=== PATIENT | female | born 1975 | race Caucasian/White ===

== ENCOUNTER 2022-11-22 10:17 | Day surgery (SDC) | payer MEDICAID, SELFPAY ==
[2022-11-15 14:13] VITALS: BMI 34.9
[2022-11-22 11:29] VITALS: BP 135/72; PULSE 71; RESP 20; TEMP 36.4; O2SAT 98
[2022-11-22 11:36] LABS: Urine Pregnancy, HCG Qual. Negative (Negative)
[2022-11-22 12:23] VITALS: O2SAT 97
--- NOTE | 2022-11-22 12:25 | P.PN_ITS ---
[facility] Disclaimer: The information contained in this section may have been updated after the patient was seen, as this information can be updated by other users. Medical History No significant past medical history Surgical History Hx of umbilical hernia repair Family History Other Diabetes Family history of hyperlipidemia Family history of hypothyroidism Hyperlipidemia Thyroid disorder Social History Smoking Status: Never smoker alcohol intake: never substance use type: denies use current occupational status: other Travel in the last 8 weeks: None household members: spouse and family housing: house marital status: education level: high school service: No care home: No caffeine: No special genevieve needs: No agree to transfusion: No do you feel safe at home: Yes victim of physical abuse: No victim of emotional abuse: No victim of sexual abuse: No would you like helpful sources: No [facility] Anesthesia Checklist Patient Identification Patient Identification: Arm Band and Verbal (Name & ) Structural Data Admitted From: Home Planned Operative Procedure/s: Colonoscopy Consent for Planned Operative Procedure(s) Verified: Yes NPO Status Verified Time NPO: 00:00 Chart Verification Results Verified: HCG Airway Assessment C-Spine Mobility Assessed: Yes TMJ Mobility Assessed: Yes Dentition: Good Dentition Neurological Assessment Level of Consciousness: Awake Hx Seizures: No Numbness or tingling in extremities: No Anesthesia Plan Anesthesia Risk discussed: Yes Anesthesia Plan: Verified ASA Class: II Anesthesia Type: MAC
--- NOTE | 2022-11-22 12:38 | HMH.SCOPE ---
Procedure: Date: 11/22/22 Patient Date of :: 1975 Procedure Performed:: Colonoscopy Indications:: Screening colonoscopy Performing Provider:: Tariq Yuan MD Referring Provider:: Yasmin Jefferson Sedation:: See RN notes Procedure:: After placing the patient in the left lateral decubitus position, the colonoscopy was gently inserted into the rectum and under direct visualization advanced to the cecum which was identified by transillumination in the right lower quadrant, identification of the ileocecal valve, appendiceal orifice, and cecal strap. Color, texture, mucosa, and anatomy of the colon were carefully examined with the scope. Findings:: Anal canal: normal Rectum: Internal hemorrhoids Sigmoid colon: Diverticulosis Descending colon: normal without polyps or inflammatory changes Splenic flexure: normal Transverse colon: normal without polyps or inflammatory changes Hepatic flexure: normal Ascending colon: normal without polyps or inflammatory changes Cecum: normal Terminal ileum: not visualized Recommendations:: Higher fiber diet Repeat colonoscopy in 10 years or sooner if clinically indicated Complications:: None Estimated blood obtained (mL): 0
[2022-11-22 12:39] VITALS: BP 114/69; PULSE 76; RESP 15; TEMP 36.4; O2SAT 94
[2022-11-22 12:49] VITALS: BP 118/74; PULSE 63; RESP 16; O2SAT 95
[2022-11-22 12:59] VITALS: BP 124/72; PULSE 60; RESP 16; O2SAT 95
[2022-11-22 13:25] VITALS: BP 133/78; PULSE 53; RESP 17; O2SAT 99
== END 2022-11-22 13:30 | disposition home or self-care (01) ==
PROVIDERS: PCP Nurse Practitioner Family; Visit Provider Internal Medicine
PROC: 0DJD8ZZ Inspection of Lower Intestinal Tract, Via Natural or Artificial Opening Endoscopic (ICD-10-PCS; CPT 45378; principal; 2022-11-22 11:30)
DX: Z12.11 Encounter for screening for malignant neoplasm of colon (principal); K64.8 Other hemorrhoids; K57.30 Diverticulosis of large intestine without perforation or abscess without bleeding; Z79.899 Other long term (current) drug therapy
CPT/HCPCS: 45378; 81025; J2704

== ENCOUNTER 2022-12-29 17:10 | Emergency (ER) | payer MEDICAID, SELFPAY ==
[2022-12-29 17:12] VITALS: BP 112/71; PULSE 88; RESP 17; TEMP 36.8; O2SAT 97; BMI 19.2
--- NOTE | 2022-12-29 17:28 | HMH.EDGENADL ---
Discharge Plan Disposition Patient Disposition: Home, Self-Care Prescriptions Prescriptions: New cefdinir 300 mg capsule 300 mg PO BID 10 Days Qty: 20 0RF No Action Co [id number] E-Fish Oil 25-150-200 mg-mg-unit capsule 1 cap PO DAILY omega 0-azw-xky-fish oil [Fish Oil] 300-1,000 mg capsule 1 cap PO DAILY cholecalciferol (vitamin D3) 25 mcg (1,000 unit) capsule 25 mcg PO DAILY cinnamon bark [Cinnamon] 500 mg capsule 500 mg PO DAILY vlacdaa-yflq-rubcr-oreg-capryl 100 mg-150 mg- 50 mg-150 mg capsule 1 cap PO DAILY thyroid (pork) [TRACK INSPECTING SUPERVISOR Thyroid] 60 mg tablet 60 mg PO DAILY peg 3350-electrolytes [GaviLyte-G] 236-22.74-6.74 -5.86 gram recon soln 240 ml PO Q10M Rx Instructions: until fecal effluent is clear follow mailed instructions peg 3350-electrolytes [GaviLyte-G] 236-22.74-6.74 -5.86 gram recon soln 240 ml PO Q10M Rx Instructions: until fecal effluent is clear follow mailed instructions Referrals Follow up/Referrals: Yasmin Jefferson APRN [Primary Care Provider] - See instructions Activity Restrictions/Add. Instructions Additional Instructions/Restrictions: Your evaluation today for flank pain dysuria and blood in your urine did not demonstrate any kidney stones within the collecting system that would be causing your symptoms today. You do have some intrarenal kidney stones which are typically asymptomatic. Urine culture has been sent. Your antibiotic has been transitioned from nitrofurantoin to Omnicef. If you are not improving in 48 to 72 hours please have your primary care doctor look up the urine culture and sensitivity results. 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 If you have any high fevers that are not improving on Tylenol and ibuprofen or symptoms that are not improving or other concerns please return to the emergency department otherwise you are stable to follow-up with primary care doctor. Clinical Impressions Clinical Impression: Pyelonephritis Instructions Patient Instructions: DI for Acute Abdominal Pain Discharge ED Provider: [place] [facility] HPI General Chief complaint: Abdominal Pain Stated complaint: possible kidney Time Seen by Provider: 12/29/22 17:28 History of Present Illness HPI narrative: Patient is a 47-year-old female with a history of kidney stones who presents today with symptoms that she claims are similar to her kidney stone. She states she has not had 1 in 6 or 7 years. Over the last several days she has had some dysuria and blood in her urine. She went to her primary care doctor and had a urinalysis which showed an infection, she was started on nitrofurantoin. She had right flank pain at that time. She states that this is simply worsened over the last few days. The pain is located in the right side of her abdomen and flank and she is still having dysuria and hematuria. Related Data Home Medications Medication Instructions Recorded Confirmed cholecalciferol (vitamin D3) 25 25 mcg PO DAILY Supplement 10/26/22 11/22/22 mcg (1,000 unit) capsule cinnamon bark 500 mg capsule 500 mg PO DAILY Supplement 10/26/22 11/22/22 (Cinnamon) omega 1-umr-ias-fish oil 300 1 cap PO DAILY Supplement 10/26/22 11/22/22 mg-1,000 mg capsule (Fish Oil) thyroid (pork) 60 mg tablet (TRACK INSPECTING SUPERVISOR 60 mg PO DAILY thyroid 10/26/22 11/22/22 Thyroid) tumeric 100 mg-marimar 150 mg-olive 1 cap PO DAILY Supplement 10/26/22 11/22/22 50 mg-oreg 150 mg-caprylate capsule ubidecarenone-omega 3-vit E 25 1 cap PO DAILY Supplement 10/26/22 11/22/22 mg-150 (90-60) mg-200 unit capsule (Co U-44-Hcdnhrf E-Fish Oil) peg 3350-electrolytes 236 240 ml PO Q10M prep 11/07/22 11/22/22 gram-22.74 gram-6.74 gram-5.86 gram solution (GaviLyte-G) peg 3350-electrol
--- NOTE | 2022-12-29 17:35 | CT_ITS ---
PROCEDURE INFORMATION: Exam: CT Abdomen And Pelvis Without Contrast Exam date and time: 12/29/2022 6:33 PM Age: 47 years old Clinical indication: Abdominal pain; Flank; Right; Additional info: Right flank pain TECHNIQUE: Imaging protocol: Computed tomography of the abdomen and pelvis without contrast. Radiation optimization: All CT scans at this facility use at least one of these dose optimization techniques: automated exposure control; mA and/or kV adjustment per patient size (includes targeted exams where dose is matched to clinical indication); or iterative reconstruction. REPORTING DATA: Count of CT and Cardiac NM exams in prior 12 months: This patient has received 0 known CTs and 0 known cardiac nuclear medicine studies in the 12 months prior to the current study. COMPARISON: ABDPELW/O CT ABD PELVIS W/O CONTRAST 05/10/2017 12:33 PM FINDINGS: Lungs: The visualized lung bases are clear. Pleural spaces: There are no pleural effusions. Heart: The visualized portions of the heart are unremarkable. There is no evidence of pericardial fluid collections. Liver: There is diffuse decrease in hepatic/liver parenchymal density consistent with fatty infiltration. Evaluation of the liver is limited without contrast but the liver is otherwise within normal limits for this noncontrast study. Gallbladder and bile ducts: Several small calcified gallstones are present. No gallbladder wall thickening or pericholecystic fluid. Pancreas: Noncontrast images of the pancreas are within range of normal. Spleen: There are a few rounded splenic hypodensities that cannot be further characterized on the current examination. The larger hypodensities may be cystic regions. A 2.4 cm hypodensity in the mid inferior spleen demonstrate internal Hounsfield units of 9 suggesting cyst. There is a tiny punctate focus of increased density along the periphery of this hypodensity suggesting small mural calcification. An inferior splenic hypodensity demonstrates Hounsfield units of 11 suggesting cystic process. These are all stable when compared with 2017 study given differences in imaging technique suggesting benign processes. Adrenal glands: The adrenal glands are normal. Kidneys and ureters: There are multiple nonobstructing bilateral renal collecting system calcifications, as before. 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 No hydronephrosis. No hydroureter. No ureteric stone disease. Stomach and bowel: The stomach is normal. The duodenum is unremarkable. Lack of gastrointestinal contrast limits evaluation of bowel. Mild diverticulosis is present in the distal colon. There is no evidence of colitis/diverticulitis. Unopacified loops of small bowel within range of normal. Appendix: A normal appendix is identified. Intraperitoneal space: There is no evidence of free intraperitoneal or pelvic fluid. No free air. Vasculature: The aorta demonstrates mild atherosclerotic calcification. Lymph nodes: There is no evidence of pathologic adenopathy. Urinary bladder: There is minor nonspecific bladder wall thickening. Reproductive: The uterus is normal. The left ovary is normal. The right ovary is normal. Bones/joints: There is no evidence of acute fracture. There are mild degenerative changes of the symphyseal pubic joint. There are mild degenerative changes of the sacroiliac joints. The thoracolumbar spine demonstrates mild degenerative changes at multiple levels. There is slight retrolisthesis of L5 on S1. There is a lucency within the T11 vertebral body which is nonspecific but likely reflects a hemangioma. This is mildly increased since 2017. There is a small stable ov
[2022-12-29 17:46] LABS: Microscopic, Urine URINE MICROSCOPIC (MICROSCOPIC)
[2022-12-29 17:49] LABS: Basophils # 0.1 K/mm3 (0-0.2); Basophils % 0.4 % (0.1-2.0); Eosinophils # 0.2 K/mm3 (0.0-0.4); Eosinophils % 1.6 % (0.1-12.0); Hematocrit 41.8 % (37.0-47.0); Hemoglobin 13.6 g/dL (12.2-16.2); Lymphocytes # 1.8 K/mm3 (0.7-4.5); Mean Corpuscular HGB Conc 32.6 g/dL (31.8-35.4); Mean Corpuscular Hemoglobin 25.8 pg (27.0-31.2); Mean Corpuscular Volume 79.1 fl (81-99); Monocytes # 0.6 K/mm3 (0.1-1.0); Monocytes % 5.3 % (1.7-9.3); Neutrophils # 8.8 K/mm3 (1.8-7.8); Neutrophils % 76.6 % (37.0-80.0); Platelet Count 281 K/mm3 (142-424); Red Blood Count 5.29 M/mm3 (4.20-5.40); Red Cell Distribution Width 15.6 % (11.5-17.5); White Blood Count 11.4 K/mm3 (4.8-10.8)
[2022-12-29 17:50] LABS: Appearance,Urine CLEAR (Clear); Bilirubin,Urine Negative (Negative); Blood, Urine 1+ (Negative); Chloride 97 mmol/L (98-107); Color,Urine YELLOW (Yellow); Glucose,Urine (UA) Negative (Negative); Ketones,Urine Negative (Negative); Leukocyte Esterase,Urine 1+ (Negative); Nitrate,Urine Negative (Negative); PH,Urine 5.5 (5.0-8.5); Protein,Urine Negative (Negative); Sodium 138 mmol/L (136-145); Specific Gravity, Urine <= 1.005 (1.005-1.030); Urobilinogen,Urine 0.2 EU/dl (0.2)
[2022-12-29 17:53] LABS: Alanine Aminotransferase 26 U/L (12-78); Albumin Level 4.6 g/dl (3.5-5.0); Albumin/Globulin Ratio 1.5 (1.1-1.8); Alkaline Phosphatase 96 U/L (38-126); Aspartate Amino Transferase 30 U/L (14-36); Bilirubin,Total 0.5 mg/dl (0.2-1.3); Blood Urea Nitrogen 7 mg/dl (7-17); Carbon Dioxide 28 mmol/L (22.0-30.0); Creatinine Clearance Estimated 109 mL/min (50-200); Estimated Glomerular Filt Rate 108 ml/min (>60); GFR (African American) 130 ML/MIN (>60); Globulin 3.1 g/dL (1.3-3.2); Total Protein,Serum 7.7 g/dl (6.3-8.2)
[2022-12-29 17:54] LABS: Calcium 9.6 mg/dl (8.4-10.2); Glucose 95 mg/dl (74-100)
[2022-12-29 18:00] LABS: RBC,Urine Occasional #/hpf (0-3); WBC,Urine Occasional #/hpf (0-3)
[2022-12-29 18:14] LABS: Urine Pregnancy, HCG Qual. Negative (Negative)
[2022-12-29 19:53] VITALS: BP 110/70; PULSE 85; RESP 18; TEMP 36.6; O2SAT 99
== END 2022-12-29 19:57 | disposition home or self-care (01) ==
PROVIDERS: Emergency Provider Student in an Organized Health Care Education/Training Program; PCP Nurse Practitioner Family
DX: N12 Tubulo-interstitial nephritis, not specified as acute or chronic (principal)
CPT/HCPCS: 74176; 80053; 81001; 81025; 85025; 87086; 96361; 96374; 96375; 99284; 99285; J2405

== ENCOUNTER 2024-09-16 13:58 | Outpatient (CLI) | payer MEDICAID, SELFPAY ==
[2024-09-16 15:17] LABS: Iron 237 ug/dL (37-170)
[2024-09-16 15:40] LABS: Total Iron Binding Capacity 432 ug/dL (265-497)
[2024-09-16 16:25] LABS: Ferritin 9.35 ng/ml (6.24-137)
[2024-09-17 14:20] LABS: Deamidated Gliadin Abs, IgA 77 units (0-19); Deamidated Gliadin Abs, IgG 35 units (0-19); Tissue Transglutaminase IgG Ab 7 U/mL (0-5)
[2024-09-17 17:37] LABS: Endomysial IgA Antibody Positive (Negative)
[2024-09-18 08:22] LABS: Reticulin IgA Antibody Negative titer (Neg:<1:2.5)
[2024-09-18 15:22] LABS: Tissue Transglutaminase IgA Ab 9 U/mL (0-3)
== END 2024-09-16 23:59 | disposition home or self-care (01) ==
LOC: LAB 13:59
PROVIDERS: PCP Nurse Practitioner; Visit Provider Internal Medicine Gastroenterology
DX: D50.9 Iron deficiency anemia, unspecified (principal)
CPT/HCPCS: 36415; 82728; 83516; 83540; 83550; 86255; 86256

== ENCOUNTER 2024-11-17 06:44 | Day surgery (SDC) | payer MEDICAID, SELFPAY ==
[2024-11-11 11:27] VITALS: BMI 33.6
[2024-11-17] VITALS (8 sets, daily range): BP systolic 112–132; BP diastolic 72–80; PULSE 58–75; RESP 17–18; TEMP 36.3–36.4; O2SAT 96–100
[2024-11-17] MEDS: LACTATED RINGERS 1000ML 1,000 ML 50 ML IV (07:35)
[2024-11-17 08:19] LABS: HCG Qualitative, Serum Negative (Negative)
--- NOTE | 2024-11-17 08:24 | P.HP_ITS ---
History of Present Illness *Admission Date: 11/17/24 *Reason for visit:: Bleeding and prolapsing internal hemorrhoids *History of present illness: Mrs. Loredo is a 48-year-old female who has had frequent hemorrhoidal bleeding, prolapsing internal hemorrhoids and external hemorrhoidal tags. She reports no anorectal pain but does have frequent bright red rectal bleeding that can sometimes be on the toilet tissue but other times can be striping the outside of the bowel movement and sometimes will even dripped down her legs. This can be very troublesome. She did have a colonoscopy in November 2022 (Tariq Yuan) and the examination was normal except for internal hemorrhoids which were not treated at that time. She was not given any prescription Anusol but did take it upon herself to use Preparation H suppositories which helped very little. The patient more recently was found to have anemia (borderline). Her hemoglobin was 10.4. Her hemoglobin from December 2022 was 13.6. Interesting, her labs from 2016 and 2022 showed microcytic indices but no anemia. The patient does have va ricosities of the legs. She does have 3 children with celiac disease but has never been tested. [facility] Disclaimer: The information contained in this section may have been updated after the patient was seen, as this information can be updated by other users. Medical History No significant past medical history Surgical History Hx of umbilical hernia repair Family History Other Diabetes Family history of hyperlipidemia Family history of hypothyroidism Hyperlipidemia Thyroid disorder Social History Smoking Status: Never smoker alcohol intake: never substance use type: denies use current occupational status: unemployed Travel in the last 8 weeks: None household members: spouse and family housing: house marital status: education level: high school service: No usp: No caffeine: No special genevieve needs: No agree to transfusion: No do you feel safe at home: Yes victim of physical abuse: No victim of emotional abuse: No victim of sexual abuse: No would you like helpful sources: No Have you lived/traveled outside [place] in past 30 days?: No Contact w/someone who lives/traveled outside US past 30 days?: No Exposure to someone with infectious disease in past 14 days?: No Do you have a fever (greater than 100.4 F or 38 C)?: No Have you tested positive for COVID-19: No Exposed to someone with COVID-19 in past 14 days?: No Do you have a sore throat?: No Do you have a cough?: No Do you have any weakness?: No Do you have any diarrhea?: No Are you experiencing any unusual bleeding?: No Do you have any muscle aches/pain?: No Do you have any abdominal pain?: No Are you experiencing loss of taste or smell?: No Review of Systems Review of Systems Review of systems (narrative): Negative *Cardiovascular Comments: Negative *Gastrointestinal Comments: Negative *Genitourinary Comments: Negative *Musculoskeletal Comments: Negative *Neurologic Comments: Negative Meds Home Medications and Allergies Home Medications ?Medication ?Instructions ?Recorded ?Confirmed ?Type cholecalciferol (vitamin D3) 25 25 mcg PO DAILY Supplement 10/26/22 11/11/24 History mcg (1,000 unit) capsule omega 6-bsy-akg-fish oil 300 1 cap PO DAILY Supplement 10/26/22 11/17/24 History mg-1,000 mg capsule (Fish Oil) thyroid (pork) 60 mg tablet (AUTOMOTIVE METALSMITH 60 mg PO DAILY thyroid 10/26/22 11/17/24 History Thyroid) New Prescriptions to Start Prescriptions: Allergies Allergy/AdvReac Type Severity Reaction Status Date / Time No Known Allergies Allergy Verified 11/17/24 07:26 Exam Data for Last 24 hours Vital signs and Labs for Last 24 Hours: Temp Pulse Resp BP Pulse Ox O2 Del Method 97.6 F 72 17 121/79 96 Room Air 11/17/24 07:30 11/17/24 07:30 11/17/24 07:30 11/17/24 07:30 11/17/24 07:30 11/17/24 07:30 Laboratory Results - last 24 hr 11/17/24 07:30: Serum HCG, Qual Negative *Routine HEENT Exam Head: Present normocephalic Eye: Present EOMI and PERRL ENT: Present mucous membranes moist *Routine Neck Exam Neck: Present supple *Routine Respiratory Exam Respiratory: Present CTA bilaterally *Routine Cardiovascular Exam Cardiovascular: Present RRR *Routine Abdominal Exam Abdominal: Present soft and normoactive bowel sounds; Absent tenderness *Routine Rectal Exam Rectal:: deferred *Routine Genitalia Exam Genitalia:: deferred *Routine Extremities Exam Extremities: Absent cyanosis, clubbing or edema *Routine Skin Exam Skin: Present warm; Absent rash *Routine Neurological Exam Neurological: Present alert and oriented X3 Assessment and Plan *Assessment and plan (1) Bleeding internal hemorrhoids: Status: Acute Category: Medical Code(s): K64.8 - Other hemorrhoids (2) Prolapsed internal hemorrhoids: Status: Acute Category: Medical Code(s): K64.8 - Other hemorrhoids Plan A/P: 1. Bleeding and prolapsing internal hemorrhoids is the preprocedural diagnosis. The patient will be anesthetized/sedated using MAC sedation. The patient has been seen and examined. Cardiac and lung assessment prior to the examination is stable. Proceed with planned flexible sigmoidoscopy and possible hemorrhoid ablation or hemorrhoid band ligation.
--- NOTE | 2024-11-17 08:26 | P.PCN_ITS ---
[facility] Procedure Note Date: 11/17/24 Time: 08:42 Procedure Note:: Flexible Sigmoidoscopy Procedure Report: Sigmoidoscopy with monopolar ablation/coagulation of internal hemorrhoids Endoscopist: Stephen Jo II, MD Referring physician: Lucila PABLO Date of Procedure: November 17, 2024 Equipment: Olympus 180 variable stiffness pediatric colonoscope Sedation: MAC sedation Indication: Mrs. Loredo is a 48-year-old female who is here for diagnostic/therapeutic sigmoidoscopy. She has had frequent hemorrhoidal bleeding, prolapsing internal hemorrhoids and external hemorrhoidal tags. She reports no anorectal pain but does have frequent bright red rectal bleeding that can sometimes be on the toilet tissue but other times can be striping the outside of the bowel movement and sometimes will even dripped down her legs. This can be very troublesome. She did have a colonoscopy in November 2022 (Tariq Yuan) and the examination was normal except for internal hemorrhoids which were not treated at that time. She was not given any prescription Anusol but did take it upon herself to use Preparation H suppositories which helped very little. The patient more recently was found to have anemia (borderline). Her hemoglobin was 10.4. Her hemoglobin from December 2022 was 13.6. Interesting, her labs from 2016 and 2022 showed microcytic indices but no anemia. The patient does have varicosities of the legs. She does have 3 children with celiac disease but has never been tested. At the time of her office visit with me, I did send celiac serologies and she had strongly positive celiac serologies (elevated gliadin IgG and IgA antibody and elevated tissue transglutaminase IgG and IgA antibody). I had also recommended Vasculera for the internal hemorrhoids as well as psyllium fiber. She is not doing the psyllium routinely. She refused doing upper endoscopy for diagnostic celiac biopsies. Procedure: Prior to the procedure, a history and physical exam was performed, and patient's medications and allergies were reviewed. The risks, benefits and alternatives of the sedation and procedure were discussed with the patient. All questions were answered and informed consent was obtained. The patient was brought to the procedure room. Patient identification and proposed procedure were verified by the physician and the nurse. The patient was placed in a left lateral decubitus position and the scope was passed under direct vision. Throughout the procedure, the patient's blood pressure, pulse, and oxygen saturations were monitored continuously. The colonoscopy was accomplished without difficulty. The patient tolerated the procedure well. Findings: On digital rectal examination there were external hemorrhoidal tags. There was normal rectal tone. The scope was then inserted through the anal canal into the rectum and advanced to 35 cm. The preparation was only fair and visibility proximal 35 cm was poor. Upon withdrawal, the distal sigmoid, rectosigmoid and rectum were normal. Upon retroflexion, there were grade 2-3 internal hemorrhoids. 3 columns of hemorrhoids were ablated/coagulated using monopolar ablation to destruction. The procedure was then ended. Impression: 1. Normal sigmoidoscopy to 35 cm 2. Grade 2-3 internal hemorrhoids status post monopolar ablation/coagulation Plan: I would encourage bulking fiber supplementation on a maintenance basis. I would recommend Vasculera for further hemorrhoidal issues. I would recommend endoscopy for confirmation of celiac disease. I would encourage gluten-free diet long-term. I do suspect that her iron deficiency anemia is related to the celiac disease. Celiac disease is a condition where the immune system responds abnormally the protein gluten. This leads to damage to the lining of the small intestine. The protein gluten is found in a number of grains including wheat, rye, barley and a multitude of prepared foods. The small intestine is where most of the digestion and absorption of food and nutrients occurs. Due to the damage caused to the small intestinal lining by celiac di sease, persons can have maldigestion/malabsorption. Avoiding gluten usually stops the damage to the intestinal lining and digestion then improves and corrects. There is certainly a wide range of symptoms that occur with celiac disease. In its mildest form, there may be no symptoms at all. However, regardless of the fact that some persons have few or no symptoms, she still may not be absorbing nutrients adequately (especially iron). Other conditions that are more commonly seen with celiac are bone density loss from impaired calcium and vitamin D absorption. There is also a strong relationship with autoimmune conditions.
--- NOTE | 2024-11-17 08:29 | P.PNANES_ITS ---
[facility] Disclaimer: The information contained in this section may have been updated after the patient was seen, as this information can be updated by other users. Medical History No significant past medical history Surgical History Hx of umbilical hernia repair Family History Other Diabetes Family history of hyperlipidemia Family history of hypothyroidism Hyperlipidemia Thyroid disorder Social History Smoking Status: Never smoker alcohol intake: never substance use type: denies use current occupational status: unemployed Travel in the last 8 weeks: None household members: spouse and family housing: house marital status: education level: high school service: No senior living: No caffeine: No special genevieve needs: No agree to transfusion: No do you feel safe at home: Yes victim of physical abuse: No victim of emotional abuse: No victim of sexual abuse: No would you like helpful sources: No Have you lived/traveled outside US in past 30 days?: No Contact w/someone who lives/traveled outside US past 30 days?: No Exposure to someone with infectious disease in past 14 days?: No Do you have a fever (greater than 100.4 F or 38 C)?: No Have you tested positive for COVID-19: No Exposed to someone with COVID-19 in past 14 days?: No Do you have a sore throat?: No Do you have a cough?: No Do you have any weakness?: No Do you have any diarrhea?: No Are you experiencing any unusual bleeding?: No Do you have any muscle aches/pain?: No Do you have any abdominal pain?: No Are you experiencing loss of taste or smell?: No [facility] Anesthesia Checklist Patient Identification Patient Identification: Arm Band and Verbal (Name & ) Structural Data Admitted From: Emergency Dept Planned Operative Procedure/s: flex sigmoidscopy Consent for Planned Operative Procedure(s) Verified: Yes Verified Documents: Surgical Consent and History and Physical NPO Status Verified Time NPO: 00:00 Additional verifications Patient : No Anesthesia Reactions: No Airway Assessment Mallampati Score:: Class II Neurological Assessment Level of Consciousness: Awake, Alert and Appropriate Hx Seizures: No Numbness or tingling in extremities: No Anesthesia Plan Anesthesia Risk discussed: Yes Anesthesia Plan: Verified ASA Class: II Anesthesia Type: MAC
== END 2024-11-17 09:46 | disposition home or self-care (01) ==
PROVIDERS: PCP Nurse Practitioner; Visit Provider Internal Medicine Gastroenterology
PROC: 0DJD8ZZ Inspection of Lower Intestinal Tract, Via Natural or Artificial Opening Endoscopic (ICD-10-PCS; CPT 45330; principal; 2024-11-17 08:30)
DX: K64.8 Other hemorrhoids (principal); K62.5 Hemorrhage of anus and rectum
CPT/HCPCS: 45388; 84703; J7120